=== PATIENT | female | born 1970 | race Hispanic/Latino ===

== ENCOUNTER 2022-01-24 18:40 | Emergency (ER) | payer BC ==
[2022-01-24] MEDS ORDERED: KETOROLAC 30MG VIAL (30MG/ML) ONE (19:21)
[2022-01-24] MEDS ORDERED: DIAZEPAM 5 MG/ML 2 ML SYG ONE (19:21)
[2022-01-24] MEDS ORDERED: DIAZEPAM 5 MG/ML 2 ML SYG IVP ONE (19:30)
[2022-01-24] MEDS ORDERED: KETOROLAC 30MG VIAL (30MG/ML) IVP ONE (19:30)
[2022-01-24 19:53] VITALS: BP 132/75
[2022-01-24] MEDS ORDERED: CYCL10TA16 PO (19:57)
[2022-01-24] MEDS ORDERED: NAPR-1180 PO (19:57)
== END 2022-01-24 20:11 | disposition home or self-care (01) ==
LOC: EDH 18:40
DX: S29.012A Strain of muscle and tendon of back wall of thorax, initial encounter (principal); I10 Essential (primary) hypertension; Z79.1 Long term (current) use of non-steroidal anti-inflammatories (NSAID); X58.XXXA Exposure to other specified factors, initial encounter; Y93.89 Activity, other specified; Y92.89 Other specified places as the place of occurrence of the external cause; Y99.8 Other external cause status
CPT/HCPCS: 99284; 96374; 96375; J3360; J1885